=== PATIENT | female | born 1990 | race Caucasian/White ===

== ENCOUNTER 2022-01-29 14:07 | Outpatient (CLI) | payer OTHER, SELFPAY | END 2022-01-29 14:08 | disposition home or self-care (01) | PROVIDERS: Visit Provider Obstetrics & Gynecology | DX: R10.2 Pelvic and perineal pain (principal); Z01.818 Encounter for other preprocedural examination | CPT/HCPCS: 36415; 86850; 86900; 86901 ==

== ENCOUNTER 2022-02-05 00:57 | Day surgery (SDC) | payer OTHER, SELFPAY ==
[2022-01-29 09:49] VITALS: BMI 34.0
--- NOTE | 2022-01-29 09:55 | SUR.PREOP ---
Report to the Outpatient Waiting Room, entrance under the green pavilion located off [facility], at time 0600 on date 02/05/22. OR Time 0730. - You and your visitor will be asked a series of questions to screen for COVID 19 for your protection. - Only one visitor is allowed at this time. - The patient visitor is requested to leave or wait in car when not with patient. - A mask is required within the hospital. Patients may have clear liquids (water, carbonated beverages, clear teas, apple juice) until 3 hours prior to surgery with a maximum of 20 ounces. - No food from midnight until time of surgery BEFORE 0430AM - Infants may have breast milk until 4 hours before surgery, infant formula 6 hours prior to surgery. - Children will be allowed to drink immediately following surgery. If applicable, please bring a bottle or sippy cup to assist with drinking. Juice, water, soda, and popsicles are readily available. For infants on formula, please bring formula the day of surgery. Pacifiers are allowed. Take the following medications with a SIP of water the morning of surgery: LEXAPRO Medications to discontinue per physician N/A Date to take last dose Please no make-up, nail czech, hairspray, perfume, deodorant, or body powder the day of surgery. No jewelry (including any body piercings) or valuables the day of surgery, leave them at home. Please take a shower or bath the night before, or the morning of, surgery with an antibacterial soap. Wear comfortable, loose fitting clothing. Children are encouraged to wear pajamas. - Jewelry must be removed prior to entering the operating room. Rings and piercings that are not removed may be cut off. - The hospital will not accept responsibility for valuables. - Please leave all valuables, including medications, at home the day of surgery. If you are going home after surgery, a licensed test driver must drive you home. - NO public transportation without another adult. - We recommend that an adult stay with you for 24 hours following discharge. - We also recommend that you do not drive, make important decision, drink alcoholic beverages, or take any drugs that were not prescribed by your health care provider for at least 24 hours after your discharge time. For Pediatric surgeries, we recommend two adults accompany the child home (only one inside the building at this time). Follow any additional instructions given to you from your surgeon. If you or anyone in your household have experienced Covid symptoms in the past week, please notify your surgeon or the nurse liaison at the phone number below for possible testing. Telephone instructions given to PATIENT and asked if any additional questions and then verbalized understanding. Patient advised to call surgeon office or pre surgery nurse liaison [phone] if any additional questions.
--- NOTE | 2022-02-04 13:37 | P.PNAN_ITS ---
Anes - Initial Pre Proc Eval Procedure: Operation Date: 02/05/22 07:30 Proposed Procedures p Total Laparoscopic Hysterectomy with Bilateral Salpingectomy - Veda Antonio MD Date/Time: 02/04/22 13:37 Surgeon: Veda Antonio MD Pre Op Diagnosis: pelvic pain Patient Data Age: 31 Gender: F Height: 1.68 m Weight: 95.71 kg Allergies Allergy/AdvReac Type Severity Reaction Status Date / Time No Known Allergies Allergy Verified 01/29/22 09:47 Home Medications Medication Instructions Recorded Confirmed Type escitalopram oxalate 10 mg tablet 25 tablet PO DAILY 01/29/22 01/29/22 History Patient hx anesthesia problems: none Family hx anesthesia problems: none Results Review: All pre-operative results and documents have been reviewed as part of the pre- operative evaluation. [facility] Past Medical History Medical History (Updated 02/04/22 @ 13:37 by Rajinder Dunlap MD) Depression Obesity Social History Social History Years smoked: 12 Smoking status: Current every day smoker Tobacco type: cigarettes Alcohol use details: ON OCCASION Substance use type: does not use Living arrangements: with family Spiritual care concerns: No Anes - Eval Final PreProcedure Day of Procedure 02/04/22 13:37 Patient weight: obese Heart: regular rate and rhythm Lungs: clear to auscultation Airway: Mallampati scale class II Neurological: alert and oriented Last oral intake: >/= 8 hours ASA classification: II Emergent: no Anesthetic plan: proceed Anesthesia type and monitoring: general ETT and standard monitoring Results Review: All pre-operative results and documents have been reviewed as part of the pre- operative evaluation. Informed Consent: The patient's anesthetic plan and its attendant risks and benefits were discussed with the patient/family/POA. Questions were solicited and answers provided to the satisfaction of the patient/family/POA.
[2022-02-05] VITALS (14 sets, daily range): BP systolic 128–156; BP diastolic 67–102; PULSE 69–95; RESP 16–20; TEMP 36.4–37.1; O2SAT 95–100
[2022-02-05] MEDS: ACETAMINOPHEN 500 MG TABLET 1000 MG PO (06:48)
[2022-02-05] MEDS: KETOROLAC 15 MG/ML VIAL (*BKC) IV PUSH (06:48)
[2022-02-05] MEDS: LACTATED RINGERS 1,000 ML 30 ML IV CONT ×2 (06:49→09:15)
--- NOTE | 2022-02-05 07:07 | WPDHPUPDATE1 ---
History and Physical Update Update Date/Time: 02/05/22 07:07 History and Physical has been reviewed, including an updated exam of the patient. There are NO changes in the patient's condition. Risks, benefits, and alternatives have been discussed and questions answered. Patient agrees to proceed with procedure.
[2022-02-05] MEDS: ceFAZolin 2 GM/D5W 50 ML 2 GM/50 ML BAG IVPB (07:26)
[2022-02-05] MEDS: ceFAZolin SODIUM 1 GM VIAL (07:55)
--- NOTE | 2022-02-05 09:02 | W.PM.PROC2 ---
Procedure Note - Detailed Date of Procedure 02/05/22 Pre-op Diagnosis pelvic pain Post-op Diagnosis Same Procedure Performed Total laparoscopic hysterectomy. Surgeon Veda Antonio MD Anesthesia General Indications pelvic pain Findings enlarged uterus Description of Procedure This patient was taken to the operating room. She was prepped and draped in the dorsal lithotomy position after induction of general anesthesia. The uterine manipulator and Kylie cup were placed. This was done with a speculum and tenaculum. The speculum was placed. The cervix was grasped with a tenaculum. The stay sutures were placed at 3 and 9:00 a.m.. The stay sutures of 0 Vicryl were brought through the appropriately sized Kylie cup. The tip of the DAYSI manipulator was placed in the intrauterine cavity. The cup was slid into place around the cervix and into the fornices. It was locked into place. The sutures were then wrapped around the handle and tied under tension. A 5 mm skin incision was made in the left upper quadrant the abdomen. A 5 mm trocar was inserted into the intrauterine cavity under direct visualization of the scope. Pneumoperitoneum was achieved. A left lower quadrant 11 mm incision was made with scalpel. An 11 mm trocar was inserted into the anterior abdominal cavity under direct visualization the scope. A 5 mm infraumbilical incision was made with a scalpel and a 5 mm trocar was inserted the intra-abdominal cavity under direct visualization of the scope. Bilateral ureteral lysis was performed. This was done from the pelvic brim down to the uterine artery. This was done with careful dissection using sharp and blunt dissection. The fallopian tubes were removed bilaterally. The mesosalpinx around the fallopian tubes were cauterized transected with LigaSure cautery. This was done in a bilateral fashion from the ovary to the uterine cornua. The fallopian tube was transected at the uterine cornu and amputated. The tube was taken out the left lower quadrant trocar site. In a stepwise fashion along the lateral aspects of the uterus the round ligament and broad ligaments were cauterized transected down to the level of the uterine arteries. A bladder flap was created in the bladder was moved distally to the end of the cervix and over the Kylie cup. The bilateral uterine arteries were cauterized and transected. Colpotomy was then performed. In a circumferential fashion the vagina was transected using unipolar cautery. The incision was made down on the Kylie cup. The uterus and cervix were taken out through the vagina. A pneumo occluder was placed in the vagina. The vaginal cuff was closed with a 0 V lock suture in a running fashion. The pelvis was irrigated with copious amounts antibiotic irrigation. The ureters were again examined and found to be intact and flowing freely under the uterine arteries into the bladder. The bladder was intact. It was examined directly. The vagina was irrigated with Betadine solution after removal of the Pneumo occluder. The patient was taken to recovery room. She was stable condition. Sponge lap and needle counts were correct x2. Estimated Blood Loss 50 Drains Yes Packing No Pathology Yes Complications No immediate complications Condition Stable Disposition Floor
[2022-02-05] MEDS: hydrALAZINE HCL 20 MG/ML VIAL 5 MG IV PUSH ×2 (09:52→10:18)
[2022-02-05] MEDS: fentaNYL CITRATE INJ (*CRX) 100 MCG/2 ML VIAL 25 MCG IV PUSH ×2 (10:10→10:19)
[2022-02-05] MEDS: KETOROLAC 30 MG/ML VIAL (*BKC) IV PUSH (11:25)
[2022-02-05] MEDS: DEXTROSE 5%/0.45% SOD CHL 1,000 ML 125 ML IV CONT (11:25)
[2022-02-05] MEDS: ONDANSETRON INJ 4 MG/2 ML VIAL IV PUSH (11:33)
--- NOTE | 2022-02-05 12:22 | OBPPTRN ---
1052 Patient transferred to post room #283 via bed. Support person present. Oriented to unit, room, information board, admission packet and security measures. Patient verbalizes understanding.
[2022-02-05] MEDS: HYDROcodone/acetaminophen (*CRX) 10-325 MG TABLET 1 TAB PO ×2 (15:19→19:06)
[2022-02-05] MEDS: IBUPROFEN 600 MG TABLET PO (19:05)
[2022-02-06] MEDS: HYDROcodone/acetaminophen (*CRX) 10-325 MG TABLET 1 TAB PO ×2 (01:18→07:19)
[2022-02-06] MEDS: IBUPROFEN 600 MG TABLET PO ×2 (01:19→07:19)
[2022-02-06 04:43] VITALS: BP 109/72; PULSE 72; RESP 18; TEMP 36.8
[2022-02-06] MEDS: ESCITALOPRAM OXALATE 10 MG TABLET PO (07:19)
[2022-02-06 08:00] VITALS: BP 133/88; PULSE 87; RESP 18; TEMP 36.9; O2SAT 98
--- NOTE | 2022-02-06 08:01 | PM.OBPNVD ---
OB - PN: Subj Subjective Date/time seen: 02/06/22 08:01 Patient comments: no complaints, pain well controlled, incisional pain, tolerating diet and flatus present OB - PN A/P Plan day: 1 Plan: routine care Comments: No problems, routine care, manual extraction of placenta, abx for 24 hour, no fever Time Spent With Patient Time: Total time spent is greater than 50% in coordination of care (as documented) at patient's floor/unit and/or counseling patient: Exam Const: General: comfortable, no acute distress and alert Resp: Effort & Inspection: normal respiratory effort Auscultation: no crackles, no rales and no rhonchi Cardio: Rate: regular rate Heart sounds: no click, no murmurs and no rubs GI: Inspection: non-distended GI Palp: No Tenderness to palpation present (GI) Auscultation: normal bowel sounds Other: Incision - CDI Extrem: General: normal to inspection, no pedal edema and no calf tenderness
--- NOTE | 2022-02-06 08:03 | PM.GYNPNOP ---
MOTHER TESTER - A/P Postoperative Procedures: Procedures Operation Date: 02/05/22 07:30 Actual Procedure Side Surgeon p Total Laparoscopic Hysterectomy with Bilateral Salpingectomy Bilateral Veda Antonio MD Postoperative day: 1 Postoperative status: doing well Postoperative plan: see orders Time Spent With Patient Time: Total time spent is greater than 50% in coordination of care (as documented) at patient's floor/unit and/or counseling patient: Time with patient: less than 15 minutes MOTHER TESTER- PN:Subj Post-Op Subjective Date/time seen: 02/06/22 08:03 Subjective: patient reports feeling better, patient has no complaints and pain is well controlled Exam Const: General: healthy appearing, comfortable and no acute distress Resp: Auscultation: clear to auscultation bilaterally, no rales, no rhonchi and no wheezes Cardio: Rate: regular rate Heart sounds: no click, no murmurs and no rubs GI: Inspection: non-distended Auscultation: normal bowel sounds Extrem: General: normal to inspection, no pedal edema and no calf tenderness MOTHER TESTER - PN: Obj Data Vital Signs Vital Signs: Vital Signs - 24 hr 02/05/22 09:15 02/05/22 09:30 02/05/22 09:35 Temperature 97.6 F Pulse Rate 71 69 Respiratory Rate 20 20 Blood Pressure 128/67 147/102 H 156/102 H Pulse Oximetry 95 97 Oxygen Delivery Simple Face Mask Simple Face Mask Oxygen Flow Rate 6 6 02/05/22 09:40 02/05/22 09:45 02/05/22 10:00 Temperature Pulse Rate 71 72 84 Respiratory Rate 18 16 18 Blood Pressure 152/94 H 151/102 H 150/92 H Pulse Oximetry 100 100 96 Oxygen Delivery Simple Face Mask Room Air Room Air Oxygen Flow Rate 6 02/05/22 10:15 02/05/22 10:30 02/05/22 10:45 Temperature Pulse Rate 70 90 81 Respiratory Rate 18 18 18 Blood Pressure 145/94 H 148/89 H 148/90 H Pulse Oximetry 95 95 95 Oxygen Delivery Room Air Room Air Room Air Oxygen Flow Rate 02/05/22 11:27 02/05/22 10:52 02/05/22 15:19 Temperature 97.9 F 98.2 F Pulse Rate 81 89 Respiratory Rate 18 18 Blood Pressure 130/81 137/97 H Pulse Oximetry 97 97 Oxygen Delivery Room Air Oxygen Flow Rate 02/05/22 15:19 02/05/22 19:00 02/05/22 23:31 Temperature 98.0 F 98.8 F Pulse Rate 93 90 Respiratory Rate 18 18 Blood Pressure 135/91 H 137/89 Pulse Oximetry Oxygen Delivery Room Air Oxygen Flow Rate 02/05/22 19:00 02/05/22 23:40 02/06/22 04:43 Temperature 98.3 F Pulse Rate 72 Respiratory Rate 18 Blood Pressure 109/72 Pulse Oximetry Oxygen Delivery Room Air Room Air Oxygen Flow Rate 02/06/22 04:30 Temperature Pulse Rate Respiratory Rate Blood Pressure Pulse Oximetry Oxygen Delivery Room Air Oxygen Flow Rate Intake/Output Intake/Output: Intake & Output 02/03/22 02/04/22 02/05/22 02/06/22 23:59 23:59 23:59 23:59 Intake Total 2140 1999 Output Total 1900 1600 Balance 240 400 Meds/Results Medications: Active Medications Generic Name Dose Route Start Last Admin Trade Name Freq PRN Reason Stop Dose Admin Hydrocodone Bitart/Acetaminophen 1 tab 02/05/22 10:45 Hydrocodone/Acetaminophen (*Crx) 5-325 Mg Tablet PO Q3H PRN Pain Rated 5 or Less Hydrocodone Bitart/Acetaminophen 1 tab 02/05/22 10:45 02/06/22 07:19 Hydrocodone/Acetaminophen (*Crx) 10-325 Mg Tablet PO 1 tab Q3H PRN Administration Pain Rated 6 or Greater Escitalopram Oxalate 10 mg 02/05/22 09:00 02/06/22 07:19 Escitalopram Oxalate 10 Mg Tablet PO 10 mg DAILY [place] Administration Ibuprofen 600 mg 02/05/22 10:45 02/06/22 07:19 Ibuprofen 600 Mg Tablet PO 600 mg Q6H PRN Administration Cramping Ketorolac Tromethamine 30 mg 02/05/22 10:45 02/05/22 11:25 Ketorolac 30 Mg/Ml Vial (*Bkc) IV PUSH 02/10/22 10:44 30 mg Q6H PRN Administration Pain Rated 4-6 Naloxone HCl 0.1 mg 02/05/22 10:45 Naloxone Hcl 0.4 Mg/Ml Vial IV PUSH Q2M PRN Respiratory rate less than 10 O
== END 2022-02-06 08:43 | disposition home or self-care (01) ==
LOC: ANHSURGERY 05:46 → ANHOB2 10:46
PROVIDERS: Visit Provider Obstetrics & Gynecology
PROC: 0UT9FZZ Resection of Uterus, Via Natural or Artificial Opening With Percutaneous Endoscopic Assistance (ICD-10-PCS; CPT 58571; principal; 2022-02-05 07:30)
DX: R10.2 Pelvic and perineal pain (principal); N72 Inflammatory disease of cervix uteri; N83.8 Other noninflammatory disorders of ovary, fallopian tube and broad ligament; N85.2 Hypertrophy of uterus; F32.A Depression, unspecified; F17.210 Nicotine dependence, cigarettes, uncomplicated; E66.9 Obesity, unspecified; Z68.32 Body mass index [BMI] 32.0-32.9, adult
CPT/HCPCS: 58571; 88307; 99199; A9270; J0360; J0690; J1100; J1170; J1885; J2250; J2405; J2704; J2710; J3010; J7030; J7120

== ENCOUNTER 2023-05-06 02:06 | Day surgery (SDC) | payer OTHER, SELFPAY ==
[2023-04-29 11:55] VITALS: BMI 34.8
--- NOTE | 2023-04-29 11:58 | PC.NURSE ---
Report to the Outpatient Waiting Room, entrance under the green pavilion located off [facility], at time 1130 on date 05/06/23. Planned Procedure Time: 1330. Time changes happen often and if your time is changed the preop area will call you the afternoon before. - You and your visitor will be asked to self-screen and do not enter if you have any COVID symptoms. - A mask is optional within the hospital at this time. Patients may have clear liquids (water, carbonated beverages, clear teas, apple juice) until 3 hours prior to surgery with a maximum of 20 ounces. - No food from midnight until time of surgery Take the following medications with a SIP of water the morning of surgery: LEXAPRO DO NOT STOP ANY OF YOUR OTHER PRESCRIPTION MEDICATIONS PRIOR TO SURGERY ?EXCEPT THE FOLLOWING Medications to discontinue per physician: N/A Date to take last dose: N/A Please no make-up, nail northern irish, hairspray, perfume, deodorant, or body powder the day of surgery. No jewelry (including any body piercings) or valuables the day of surgery, leave them at home. Please take a shower or bath the night before, or the morning of, surgery with an antibacterial soap. Wear comfortable, loose fitting clothing. - Jewelry must be removed prior to entering the operating room. Rings and piercings that are not removed may be cut off. - The hospital will not accept responsibility for valuables. - Please leave all valuables, including medications, at home the day of surgery. If you are going home after surgery, a licensed driver/refuse collector must drive you home. - NO public transportation without another adult if you receive anesthesia. - We recommend that an adult stay with you for 24 hours following discharge. - We also recommend that you do not drive, make important decision, drink alcoholic beverages, or take any drugs that were not prescribed by your health care provider for at least 24 hours after your discharge time. Follow any additional instructions given to you from your surgeon. If you or anyone in your household have experienced Covid symptoms in the past week, please notify your surgeon or the nurse liaison at the phone number below for possible testing. Telephone instructions given to PT - YANN JOHNSON and asked if any additional questions and then verbalized understanding. Patient advised to call surgeon office or pre surgery nurse liaison [phone] if any additional questions.
[2023-05-06] VITALS (9 sets, daily range): BP systolic 120–142; BP diastolic 64–95; PULSE 68–80; RESP 14–20; TEMP 36.7–37.2; O2SAT 96–100
[2023-05-06] MEDS: LACTATED RINGERS 1,000 ML 30 ML IV CONT ×2 (11:48→15:48)
[2023-05-06] MEDS: ACETAMINOPHEN 500 MG TABLET 1000 MG PO (11:49)
[2023-05-06] MEDS: KETOROLAC 15 MG/ML VIAL (*BKC) IV PUSH (11:52)
--- NOTE | 2023-05-06 12:59 | P.PNAN_ITS ---
Anes - Initial Pre Proc Eval Procedure: Operation Date: 05/06/23 13:30 Proposed Procedures p Laparoscopic Left Oophorectomy - Veda Antonio MD Date/Time: 05/06/23 12:59 Surgeon: Veda Antonio MD Pre Op Diagnosis: pelvic pain Patient Data Age: 32 Gender: F Height: 1.68 m Weight: 98.2 kg Last Vital Signs Temp 36.7 C 05/06/23 12:07 Pulse 80 05/06/23 12:07 Resp 20 05/06/23 12:07 BP 142/95 H 05/06/23 12:07 Pulse Ox 97 05/06/23 12:07 O2 Del Method Room Air 05/06/23 12:07 Allergies Allergy/AdvReac Type Severity Reaction Status Date / Time No Known Allergies Allergy Verified 05/06/23 11:41 Home Medications Medication Instructions Recorded Confirmed Type escitalopram oxalate 10 mg tablet 1 tablet PO DAILY 01/29/22 04/29/23 History Patient hx anesthesia problems: none Family hx anesthesia problems: none Results Review: All pre-operative results and documents have been reviewed as part of the pre-operative evaluation. [facility] Past Medical History Medical History Depression Obesity Surgical History Surgical History (Updated 05/06/23 @ 13:00 by Romaine Rae MD) H/O: hysterectomy Social History Social History Smoking packs per day: 0.5 Smoking cigarettes per day: 10.0 Years smoked: 18 Smoking pack-years: 9.00 Smoking status: Current every day smoker Tobacco type: cigarettes Alcohol intake: never Alcohol use details: ON OCCASION Substance use: current Substance use type: marijuana Living arrangements: with family Spiritual care concerns: No Anes - Eval Final PreProcedure Day of Procedure 05/06/23 12:59 Patient weight: normal Heart: regular rate and rhythm Lungs: clear to auscultation Airway: Mallampati scale class II Neurological: alert and oriented Last oral intake: >/= 8 hours ASA classification: II Emergent: no Anesthetic plan: proceed Anesthesia type and monitoring: general ETT and standard monitoring Results Review: All pre-operative results and documents have been reviewed as part of the pre- operative evaluation. Informed Consent: The patient's anesthetic plan and its attendant risks and benefits were discussed with the patient/family/POA. Questions were solicited and answers provided to the satisfaction of the patient/family/POA.
--- NOTE | 2023-05-06 14:24 | WPDHPUPDATE1 ---
History and Physical Update Update Date/Time: 05/06/23 14:24 History and Physical has been reviewed, including an updated exam of the patient. There are NO changes in the patient's condition. Risks, benefits, and alternatives have been discussed and questions answered. Patient agrees to proceed with procedure.
--- NOTE | 2023-05-06 14:29 | PM.IMHP ---
H&P: HPI History of Present Illness Date/Time: 05/06/23 14:29 Chief Complaint: Pelvic pain Narrative: This patient is a 32-year-old female with chronic pelvic pain. Recurs on the left side. She has had ovarian cysts on the left side. The pain correlates strongly with ovarian cyst on the left side. She would like left oophorectomy. We talked about the procedure in detail. We agreed to proceed with laparoscopic left oophorectomy. She understands there is risk. She understands that injuries may occur that result in hospitalization, more surgery, and severe illness. She understands risk of hemorrhage infection. She denies any nausea, vomiting, fever, chills. She denies any chest pain or shortness of breath. Review of Systems Review of Systems: All systems reviewed & are unremarkable except as noted in HPI and below Constitutional: Constitutional: Denies chills, Denies fatigue, Denies fever(s) and Denies weakness Eyes: Eyes: Denies blurry vision, Denies change in vision, Denies loss of peripheral vision, Denies loss of vision, Denies other visual disturbances and Denies eye pain ENT: Denies vertigo, Denies dizziness, Denies hearing loss, Denies mouth pain, Denies nasal obstruction, Denies neck mass and Denies neck pain Cardiovascular: Cardiovascular: Denies chest pain, Denies diaphoresis, Denies syncope, Denies leg edema and Denies dyspnea Respiratory: Respiratory: Denies chest congestion, Denies cough, Denies hemoptysis, Denies dyspnea and Denies wheezing Gastrointestinal: Gastrointestinal: Denies abdominal pain, Denies constipation, Denies diarrhea, Denies nausea and Denies vomiting Genitourinary: Genitourinary: Denies hematuria, Denies change in libido, Denies nocturia, Denies genital lesions, Denies flank pain and Denies urinary urgency Musculoskeletal: Musculoskeletal: Denies abnormal gait, Denies back pain, Denies myalgias, Denies arthralgias, Denies joint swelling, Denies muscle weakness and Denies neck pain Integumentary/Breasts: Skin/Breast: Denies swelling, Denies breast pain, Denies breast mass, Denies dry skin, Denies nipple discharge, Denies unusual bruising and Denies jaundice Neurologic: Denies Neuro-related abnormal movements, Denies Abnormal speech present, Denies abnormal gait, Denies behavioral changes, Denies confusion, Denies vertigo, Denies dizziness, Denies syncope, Denies loss of vision, Denies memory loss, Denies convulsions and Denies weakness Psychiatric: Psychiatric: Denies abnormal sleep pattern, Denies behavioral changes, Denies change in libido, Denies confusion, Denies depression, Denies anhedonia and Denies memory loss Endocrine: Endocrine: Reports no additional endocrine complaints, Denies change in libido and Denies fatigue Hematologic/Lymphatic: Hematologic/Lymphatic: Reports no additional hematologic/lymphatic complaints Allergic/Immunologic: Allergic/Immunologic: Reports no additional allergic/immunologic complaints and Denies wheezing PMFSH Past Medical History Medical History (Updated 05/06/23 @ 14:31 by Veda Antonio MD) Depression Obesity Surgical History Surgical History (Updated 05/06/23 @ 13:00 by Romaine Rae MD) H/O: hysterectomy Social History Social History Smoking packs per day: 0.5 Smoking cigarettes per day: 10.0 Years smoked: 18 Smoking pack-years: 9.00 Smoking status: Current every day smoker Tobacco type: cigarettes Alcohol intake: never Alcohol use details: ON OCCASION Substance use: current Substance use type: marijuana Living arrangements: with family Spiritual care concerns: No Meds Home Medications and Allergies Home Medications Medication Instructions Recorded Confirmed Type escitalopram oxalate 10 mg tablet 1 tablet PO DAILY 01/29/22 04/29/23 History Allergies Allergy/AdvReac Type Severity Reaction Status Date / Time No Known Allergies Allergy Verifie
--- NOTE | 2023-05-06 15:36 | W.PM.PROC2 ---
Procedure Note - Detailed Date of Procedure 05/06/23 Pre-op Diagnosis pelvic pain, ovarian cyst Post-op Diagnosis Same Procedure Performed Laparoscopic left oophorectomy Surgeon Veda Antonio MD Anesthesia General and Epidural Indications Pelvic pain, ovarian cyst Findings Large left ovarian cyst, normal anatomy for status post laparoscopic hysterectomy bilateral salpingectomy. Description of Procedure The patient was taken to the operating room. She was prepped and draped in the dorsal lithotomy position after induction general anesthesia. A 5 mm incision was made with a scalpel on the abdominal skin in the left upper quadrant of the abdomen. A 5 mm trocar was inserted into the intra-abdominal cavity under direct visualization the scope. In the same fashion a 11 mm left lower quadrant trocar was inserted and a 5 mm infraumbilical trocar was inserted. Colon in the area of the infundibulopelvic ligament was moved. Spending ligaments in the area lateral to the colon were transected with cautery. Gentle blunt dissection easily colon away from the infundibulopelvic ligament. Laparoscopic left oophorectomy was performed. Ovary was raised. The infundibulopelvic ligament was cauterized transected with LigaSure. The paraovarian tissue was cauterized and transected with LigaSure. The ovary was amputated. It was placed in an endobag and taken out the left lower quadrant trocar site. The pelvis was irrigated. The pneumoperitoneum was reduced. The trocars were removed. Skin was closed with subcuticular 4 micro. The patient's incisions were covered with Dermabond. She was taken recovery room in stable condition. Sponge lap and needle counts were correct x2. Estimated Blood Loss 15 Pathology Yes Complications No immediate complications Condition Stable Disposition Same day
[2023-05-06] MEDS: fentaNYL CITRATE INJ (*CRX) 100 MCG/2 ML VIAL 25 MCG IV PUSH ×2 (16:19→16:21)
[2023-05-06] MEDS: oxyCODONE HCL (*CRX) 5 MG TAB IR PO (17:06)
== END 2023-05-06 17:55 | disposition home or self-care (01) ==
PROVIDERS: PCP Family Medicine Sports Medicine; Visit Provider Obstetrics & Gynecology
PROC: (CPT 49320; principal; 2023-05-06 13:30)
DX: N83.02 Follicular cyst of left ovary (principal); F32.A Depression, unspecified; E66.9 Obesity, unspecified; Z68.34 Body mass index [BMI] 34.0-34.9, adult; F17.210 Nicotine dependence, cigarettes, uncomplicated; F12.90 Cannabis use, unspecified, uncomplicated
CPT/HCPCS: 58661; 88305; A9270; J0330; J1100; J1885; J2250; J2405; J2704; J3010; J7030; J7120